=== PATIENT | male | born 1980 | race Caucasian/White ===

== ENCOUNTER 2023-06-22 17:30 | Emergency (ER) | payer BC ==
[2023-06-22] MEDS ORDERED: Sodium Chloride 0.9% 2.5 ML Syringe FLUSH PRN (17:38)
[2023-06-22] MEDS ORDERED: Sodium Chloride 0.9% 10 ML Syringe FLUSH PRN (17:38)
[2023-06-22] MEDS ORDERED: Sodium Chloride 0.9% 1,000 ML IV ONE ×2 (18:04→21:38)
[2023-06-22 18:06] LABS: BASOPHILS PERCENT AUTO 0.1 % (0.0-1.5); EOSINOPHILS PERCENT AUTO 0.1 % (0.0-7.0); HEMATOCRIT 28.9 % (38.0-50.0); HEMOGLOBIN 8.6 g/dL (13.0-17.0); LYMPHOCYTES PERCENT AUTO 6.5 % (16.0-40.0); MEAN CORPUSCULAR HEMOGLOBIN 24.3 pg (27.0-32.0); MEAN CORPUSCULAR HGB CONC 29.8 g/dL (31.0-37.0); MEAN CORPUSCULAR VOLUME 81.6 fL (80.0-98.0); MONOCYTES ABSOLUTE AUTO 0.9 K/uL (0.0-0.8); MONOCYTES PERCENT AUTO 5.7 % (0.0-15.0); NEUTROPHILS PERCENT AUTO 87.6 % (48.0-80.0); NRBC ABSOLUTE 0 K/uL; PLATELET COUNT,PLT 578 K/uL (150-400); RED BLOOD CELL COUNT 3.54 M/uL (4.50-5.90); WHITE BLOOD CELL COUNT,WBC 14.81 K/uL (4.0-11.0)
[2023-06-22 18:39] LABS: D-DIMER QUANTITATIVE 5.17 mg/L FEU (0.00-0.50); INR 1.23 (0.86-1.11)
[2023-06-22 18:51] LABS: MAGNESIUM 1.7 mg/dL (1.8-2.4)
[2023-06-22 18:59] LABS: TSH ULTRASENSITIVE 1.48 uIU/mL (0.36-3.74)
[2023-06-22 19:00] LABS: ETHANOL BLOOD MEDICAL < 3.0 mg/dL
[2023-06-22 19:13] LABS: A/G RATIO 0.3 (0.9-1.6); BILIRUBIN TOTAL 0.2 mg/dL (0.2-1.0); CARBON DIOXIDE,CO2 26.3 mmol/L (21.0-32.0); CREATININE 1.3 mg/dL (0.8-1.3); EST CRCL DRUG DOSING (CG) 60.2 mL/min
[2023-06-22 19:23] LABS: CALCIUM 16.9 mg/dL (8.5-10.1)
[2023-06-22] MEDS ORDERED: Iopamidol 755 MG/ML 500 ML Multipack Bottle IVPUSH ONE (19:35)
[2023-06-22 21:21] LABS: APPEARANCE,URINE CLEAR; BILIRUBIN,URINE NEGATIVE (NEGATIVE); COLOR,URINE YELLOW; GLUCOSE,URINE NEGATIVE (NEGATIVE); KETONES,URINE NEGATIVE (NEGATIVE); LEUKOCYTE ESTERASE,URINE NEGATIVE (NEGATIVE); NITRITE,URINE NEGATIVE (NEGATIVE); OCCULT BLOOD,URINE NEGATIVE (NEGATIVE); PH,URINE 6.5 (5.0-8.0); PROTEIN,URINE NEGATIVE (NEGATIVE)
[2023-06-22] MEDS ORDERED: Piperacillin/Tazobactam 4.5 GM in Sodium Chloride 0.9% 100 ML IV ONE (21:27)
[2023-06-22 21:31] LABS: AMPHETAMINES SCREEN, URINE NEGATIVE (CUTOFF=500); BARBITURATE SCREEN,URINE NEGATIVE (CUTOFF=200); BENZODIAZEPINES SCREEN,URINE NEGATIVE (CUTOFF=150); BUPRENORPHINE SCREEN,URINE NEGATIVE (CUTOFF=10); METHADONE SCREEN, URINE NEGATIVE (CUTOFF=200); METHAMPHETAMINES SCREEN, URINE NEGATIVE (CUTOFF=500); OXYCODONE SCREEN,URINE NEGATIVE (CUT0FF=100); PCP SCREEN,URINE NEGATIVE (CUTOFF=25); PROPOXYPHENE SCREEN,URINE NEGATIVE (CUTOFF=300); THC SCREEN,URINE 20 NG/ML NEGATIVE (CUTOFF=50)
== END 2023-06-22 23:50 ==
LOC: MW.ED 17:30
DX: C80.1 Malignant (primary) neoplasm, unspecified (principal); F17.210 Nicotine dependence, cigarettes, uncomplicated; Z20.822 Contact with and (suspected) exposure to COVID-19
CPT/HCPCS: 36415; 71045; 71275; 74177; 80053; 80305; 80307; 81003; 83605; 83690; 83735; 84443; 84484; 85025; 85379; 85610; 86850; 86900; 86901; 87040; 87635; 96361; 96365; 99285; J2543; J3490; J7030; Q9967; 93005; 93010; U0002